=== PATIENT | male | born 1960 ===

== ENCOUNTER 2018-12-19 00:03 | Emergency (ER) | payer OTHER ==
[2018-12-19 00:26] VITALS: RESP 18
[2018-12-19 03:49] VITALS: BP 134/70
--- NOTE | 2018-12-19 05:03 | ED PDOC ---
Arrival/HPI - General Chief Complaint: Alcohol Ingestion Time Seen by Provider: 12/19/18 02:46 Historian: Patient, EMS - History of Present Illness Narrative History of Present Illness (Text): 12/19/18 05:03 58 year old male, presents to the emergency department by EMS, for public intoxication. Patient is arousable but sleepy. EMS states patient was found wandering the street. HPI and ROS limited due to patient condition. Time/Duration: Prior to Arrival Symptom Onset: Gradual Symptom Course: Unchanged Activities at Onset: Light Context: Walking, Street Past Medical History - Provider Review Nursing Documentation Reviewed: Yes - Psychiatric Hx Substance Use: No - Surgical History Other/Comment: Left Hip Surgery Family/Social History - Physician Review Nursing Documentation Reviewed: Yes Family/Social History: No Known Family HX Smoking Status: Former Smoker Hx Alcohol Use: Yes Frequency of alcohol use: Daily Hx Substance Use: No Allergies/Home Meds Allergies/Adverse Reactions: Allergies No Known Allergies Allergy (Verified 12/19/18 00:10) Home Medications: Home Meds Medication Instructions Recorded Confirmed RX: No Known Home Med 12/19/18 12/19/18 Review of Systems - Physician Review All systems were reviewed & negative as marked: Yes - Review of Systems Systems not reviewed;Unavailable: Intoxicated Physical Exam - Physical Exam Physical Exam Limitations: Intoxication Vital Signs Reviewed: Yes Vital Signs Temp Pulse Resp BP Pulse Ox 12/19/18 03:00 97.5 F L 82 18 134/70 97 12/19/18 00:25 97.6 F 84 18 138/76 97 Temperature: Afebrile Blood Pressure: Normal Pulse: Regular Respiratory Rate: Normal Appearance: Positive for: Well-Appearing, Non-Toxic, Comfortable, Unkept Pain Distress: None Mental Status: Positive for: Alert and Oriented X 3 Finger Stick Blood Glucose: 82 - Systems Exam Head: Present: Atraumatic, Normocephalic Pupils: Present: PERRL Extroacular Muscles: Present: EOMI Conjunctiva: Present: Injected Mouth: Present: Moist Mucous Membranes Neck: Present: Normal Range of Motion Respiratory/Chest: Present: Clear to Auscultation, Good Air Exchange Cardiovascular: Present: Regular Rate and Rhythm, Normal S1, S2 Abdomen: No: Tenderness, Distention, Normal Bowel Sounds Upper Extremity: Present: Normal Inspection Lower Extremity: Present: Normal Inspection Neurological: Present: GCS=15, CN II-XII Intact, Normal Sensory Function, Normal Cerebellar Funct, Gait Normal Skin: Present: Warm, Dry, Normal Color Psychiatric: Present: Intoxicated Medical Decision Making ED Course and Treatment: 12/19/18 06:20 Patient reassessed, now awake and alert, oriented x 3. Patient has no complaints, speech is clear and coherent and he walks w/a steady gait. Patient is stable for d/c home. - Scribe Statement The provider has reviewed the documentation as recorded by the Derrellibe Alden Ayoub Provider Scribe Attestation: All medical record entries made by the Scribe were at my direction and personally dictated by me. I have reviewed the chart and agree that the record accurately reflects my personal performance of the history, physical exam, medical decision making, and the department course for this patient. I have also personally directed, reviewed, and agree with the discharge instructions and disposition. Disposition/Present on Arrival - Present on Arrival Any Indicators Present on Arrival: No History of DVT/PE: No History of Uncontrolled Diabetes: No Urinary Catheter: No History of Decub. Ulcer: No History Surgical Site Infection Following: None - Disposition Have Diagnosis and Disposition been Completed?: Yes Diagnosis: Alcohol intoxication Disposition: HOME/ ROUTINE Disposition Time: 06:25 Patient Plan: Discharge Condition: IMPROVED Discharge Instructions (ExitCare): Alcohol Abuse and Alcoholism (DC) Additional Instructions: KIAN DUNBAR, thank you for letting us take care of you today. Your provider was Aislinn Duran MD and you were treated for ETOH. The emergency medical care you received today was directed at your acute symptoms. If you were prescribed any medication, please fill it and take as directed. It may take several days for your symptoms to resolve. Return to the Emergency Department if your symptoms worsen, do not improve, or if you have any other problems. Please contact your doctor or call one of the physicians/clinics you have been referred to that are listed on the Patient Visit Information form that is inclu ded in your discharge packet. Bring any paperwork you were given at discharge with you along with any medications you are taking to your follow up visit. Our treatment cannot replace ongoing medical care by a primary care provider outside of the emergency department. Thank you for allowing the [facility] team to be part of your care today. Referrals: [facility] [Outside] - Follow up with primary at [facility] [Outside] - Follow up with primary Joycelyn Valdivia MD [Medical Doctor] - Follow up with primary Forms: [employer] (Setswana)
[2018-12-19 07:16] VITALS: PULSE 89; TEMP 97.8; O2SAT 100
== END 2018-12-19 06:38 | disposition home or self-care (01) ==
LOC: ED 00:03
DX: F10.129 Alcohol abuse with intoxication, unspecified (principal)